=== PATIENT | female | born 1985 | race Caucasian/White ===

== ENCOUNTER 2016-09-20 06:41 | Emergency (ER) | payer SELFPAY ==
[~2016-09-20] VITALS: Ht 167.6 cm; Wt 117.9 kg
[~2016-09-20 06:41] MED LIST: CIPR500T94 PO; INSU100C4 SQ; INSU100I13 SQ; INSU100I17 SQ; LIRA0.6P SQ; LISI2.5T PO; METF500T4 PO; PHEN-318 PO; SERT50TA8 PO; TRAM-48 PO; bupropion
[2016-09-20 07:04] VITALS: BP 134/86
[2016-09-20] MEDS ORDERED: FAMOTIDINE 20 MG TABLET. PO ONE (07:15)
[2016-09-20] MEDS ORDERED: ONDANSETRON ODT 4 MG TAB.RAPDIS. PO ONE (07:15)
--- NOTE | 2016-09-20 07:19 | PHYS DOC ---
Past Medical History Past Medical History: Anxiety, Depression, Diabetes-Type I, Diabetes-Type II, Hypertension, Hypothyroid Additional Past Medical Histor: Diabetic since age 15. Past Surgical History: Alcohol Use: Occasionally Drug Use: Marijuana Adult General Chief Complaint Chief Complaint: NAUSEA/VOMITING/DIARRHA HPI HPI Patient is a 31 year old female with adult onset diabetes presents with intermittent daily nausea vomiting with loose stools for the past 48 hours. Reports occasional cramping with vomiting and diarrhea. Patient last vomited prior to ED arrival. She last had stools 3-4 hours prior to this morning. Patient reports fatigue, but denies fever chills and sweats. Denies dizziness lightheadedness, flank pain and urinary frequency or urgency. Patient finished last menstrual period 3 days ago. No other acute symptoms or complaints. Review of Systems Review of Systems ROS as per HPI. Current Medications Current Medications Current Medications Medications (Trade) Dose Ordered Sig/Justine Start Time Stop Time Status Last Admin Dose Admin Famotidine (Pepcid) 20 mg 1X ONCE 09/20/16 07:15 09/20/16 07:16 Ondansetron HCl (Zofran Odt) 8 mg 1X ONCE 09/20/16 07:15 09/20/16 07:16 Allergies Allergies Allergies Coded Allergies Type Severity Reaction Last Updated Verified No Known Medication Allergies Allergy Unknown 11/23/15 Yes Physical Exam Physical Exam Constitutional: Well developed, well nourished, no acute distress, non-toxic appearance. [] HENT: Normocephalic, atraumatic, bilateral external ears normal, oropharynx moist, no oral exudates, nose normal. [] Eyes: PERRLA, EOMI, conjunctiva normal, no discharge. [] Neck: Normal range of motion, no tenderness, supple, no stridor. [] Cardiovascular:Heart rate regular rhythm, no murmur [] Lungs & Thorax: Bilateral breath sounds clear to auscultation [] Abdomen: Bowel sounds normal, nondistended, bowel sounds soft, mid epigastric pain, minimal tenderness, no rebound rigidity or guarding. [] Skin: Warm, dry, no erythema, no rash. [] Back: No tenderness, no CVA tenderness. [] Neurologic: Alert and oriented X 3, normal motor function, normal sensory function, no focal deficits noted. [] Current Patient Data Vital Signs Vital Signs Date Time Temp Pulse Resp B/P (MAP) Pulse Ox O2 Delivery O2 Flow Rate FiO2 09/20/16 07:04 97.6 88 18 134/86 (102) 100 Room Air 97.6 Lab Values Laboratory Tests Test 09/20/16 06:05 POC Urine HCG, Qualitative Hcg negative (Negative) EKG EKG [] Radiology/Procedures Radiology/Procedures [] Course & Med Decision Making Course & Med Decision Making Pertinent Labs and Imaging studies reviewed. (See chart for details) [Vomiting and diarrhea consistent with GI illness prevalent community. Patient' s abdomen soft minimally tender vital signs are stable. Patient's well- hydrated. Zofran and Pepcid given for symptomatic treatment in the ED. Will continue supportive measures with PCP follow-up as needed. Return precautions reviewed. Courtesy work note provided. Patient verbalizes understanding staining agreement with discharge plan.] Dragon Disclaimer Dragon Disclaimer This electronic medical record was generated, in whole or in part, using a voice recognition dictation system. Departure Departure Impression: Primary Impression: Nausea vomiting and diarrhea Disposition: 01 HOME, SELF-CARE Condition: GOOD Patient Instructions: Nausea and Vomiting, [id number], Diarrhea, [id number] Additional Instructions: Please go home and rest. Take nausea medications as directed. Take over-the- counter Pepcid and Imodium as needed for diarrhea and stomach upset. Drink clear liquids only for the next 12-24 hours. Then gradually increase to bland diet as tolerated. Follow-up with your PCP in 2-3 days if symptoms persist. Return to the ED if new or worsening symptoms. DASIA WARE DO Sep 20, 2016 07:19
== END 2016-09-20 07:25 | disposition home or self-care (01) ==
LOC: ER 06:41
DX: R11.2 Nausea with vomiting, unspecified (principal); R19.7 Diarrhea, unspecified; R10.13 Epigastric pain; F41.9 Anxiety disorder, unspecified; F32.9 Major depressive disorder, single episode, unspecified; E11.9 Type 2 diabetes mellitus without complications; E03.9 Hypothyroidism, unspecified; I10 Essential (primary) hypertension; F12.10 Cannabis abuse, uncomplicated
CPT/HCPCS: 81025; 99283; Q0162

== ENCOUNTER 2016-12-26 11:30 | Emergency (ER) | payer OTHER ==
[~2016-12-26] VITALS: Ht 167.6 cm; Wt 117.9 kg
[2016-12-26] MEDS ORDERED: ONDANSETRON PF 4 MG/2 ML VIAL. IV ONE (12:00)
[2016-12-26] MEDS ORDERED: fentaNYL PF VIAL 100 MCG/2 ML VIAL IV ONE (12:00)
[2016-12-26 12:28] LABS: CALCIUM 10.1 mg/dL (8.5-10.1); CREATININE 0.9 mg/dL (0.6-1.0); GFR 72.6
[2016-12-26 12:33] LABS: ALBUMIN 3.2 g/dL (3.4-5.0); ALBUMIN/GLOBULIN RATIO 0.8 (1.0-1.7); TOTAL BILIRUBIN 0.3 mg/dL (0.2-1.0); TOTAL PROTEIN 7.2 g/dL (6.4-8.2)
[2016-12-26 12:34] LABS: NEG OBC SER NEG; POS OBC SER POS
[2016-12-26] MEDS ORDERED: KETOROLAC 30 MG/ML INJ. IV ONE (12:45)
[2016-12-26 12:49] LABS: BASO % 1 % (0-3); EOS % 5 % (0-3); HEMATOCRIT 38.2 % (36.0-47.0); HEMOGLOBIN 12.5 g/dL (12.0-15.5); LYMPH # 2.4 x10^3/uL (1.0-4.8); LYMPH % 30 % (24-48); MEAN CORPUSCULAR HEMOGLOBIN 27 pg (25-35); MEAN CORPUSCULAR HGB CONC 33 g/dL (31-37); MEAN CORPUSCULAR VOLUME 84 fL (79-100); MONO % 5 % (0-9); NEUT % 60 % (31-73); PLATELET COUNT 299 x10^3/uL (140-400); RED BLOOD COUNT 4.56 x10^6/uL (3.50-5.40)
--- NOTE | 2016-12-26 13:58 | RAD ---
Chest radiograph One View 12/26/2016 Clinical indication: Chest pain Comparison: None Findings: Cardiac and mediastinal silhouettes are within normal limits. No pleural effusion, pneumothorax or focal consolidation. Impression: No acute cardiopulmonary abnormality.
[2016-12-26 14:20] VITALS: BP 108/64
--- NOTE | 2016-12-26 14:38 | PHYS DOC ---
Past Medical History Past Medical History: Anxiety, Depression, Diabetes-Type I, Diabetes-Type II, Hypertension, Hypothyroid Additional Past Medical Histor: Diabetic since age 15. Past Surgical History: Alcohol Use: Occasionally Drug Use: Marijuana Adult General Chief Complaint Chief Complaint: CHEST WALL PAIN HPI HPI Patient is a 31 year old female with history of anxiety presents with nonproductive cough, right parasternal chest wall pain starting 2 hours prior to ED arrival. S1 pain is worse with palpation and deep breathing. Is not associated with nausea fever, vomiting, sweats, wheezing or shortness of breath. Patient denies leg pain swelling. No history of DVT or PE. No other acute symptoms or complaints.. [] Review of Systems Review of Systems Review symptoms as per history of present illness. All other review symptoms are negative. [] All other systems were reviewed and found to be within normal limits, except as documented in this note. Current Medications Current Medications Current Medications Medications (Trade) Dose Ordered Sig/Justine Start Time Stop Time Status Last Admin Dose Admin Fentanyl Citrate (Fentanyl 2ml Vial) 50 mcg 1X ONCE 12/26/16 12:00 12/26/16 12:05 DC Ketorolac Tromethamine (Toradol) 30 mg 1X ONCE 12/26/16 12:45 12/26/16 12:46 DC 12/26/16 13:00 30 MG Ondansetron HCl (Zofran) 4 mg 1X ONCE 12/26/16 12:00 12/26/16 12:05 DC 12/26/16 13:00 4 MG Allergies Allergies Allergies Coded Allergies Type Severity Reaction Last Updated Verified No Known Medication Allergies Allergy Unknown 11/23/15 Yes Physical Exam Physical Exam Constitutional: Well developed, well nourished, anxious.[] HENT: Normocephalic, atraumatic, bilateral external ears normal, oropharynx moist, no oral exudates, nose normal. [] Eyes: PERRLA, EOMI, conjunctiva normal, no discharge. [] Neck: Normal range of motion, no tenderness, supple, no stridor. [] Cardiovascular:Heart rate regular rhythm, no murmur or negative Homans signs. [] Lungs & Thorax: Bilateral breath sounds clear to auscultation, right parasternal chest wall over junction of the sternum and rib cartilage.[] Abdomen: Bowel sounds normal, soft, no tenderness, no masses, no pulsatile masses. [] Extremities: No tenderness, no cyanosis, no clubbing, ROM intact, no edema. [] Neurologic: Alert and oriented X 3, normal motor function, normal sensory function, no focal deficits noted. [] Psychologic: Affect normal, judgement normal, mood normal. [] Current Patient Data Vital Signs Vital Signs Date Time Temp Pulse Resp B/P (MAP) Pulse Ox O2 Delivery O2 Flow Rate FiO2 12/26/16 14:20 97 18 108/64 (79) 99 Room Air 12/26/16 11:32 98.3 98.3 Lab Values Laboratory Tests Test 12/26/16 11:45 12/26/16 12:40 12/26/16 12:55 Sodium Level 141 mmol/L (136-145) Potassium Level 3.0 mmol/L (3.5-5.1) L Chloride Level 100 mmol/L (98-107) Carbon Dioxide Level 27 mmol/L (21-32) Anion Gap 14 (6-14) Blood Urea Nitrogen 18 mg/dL (7-20) Creatinine 0.9 mg/dL (0.6-1.0) Estimated GFR (Cockcroft-Gault) 72.6 BUN/Creatinine Ratio 20 (6-20) Glucose Level 244 mg/dL (70-99) H Calcium Level 10.1 mg/dL (8.5-10.1) Total Bilirubin 0.3 mg/dL (0.2-1.0) Aspartate Amino Transferase (AST) 14 U/L (15-37) L Alanine Aminotransferase (ALT) 21 U/L (14-59) Alkaline Phosphatase 139 U/L (46-116) H Total Protein 7.2 g/dL (6.4-8.2) Albumin 3.2 g/dL (3.4-5.0) L Albumin/Globulin Ratio 0.8 (1.0-1.7) L Serum Test, Qualitative Negative (NEG) White Blood Count 8.0 x10^3/uL (4.0-11.0) Red Blood Count 4.56 x10^6/uL (3.50-5.40) Hemoglobin 12.5 g/dL (12.0-15.5) Hematocrit 38.2 % (36.0-47.0) Mean Corpuscular Volume 84 fL (79-100) Mean Corpuscular Hemoglobin 27 pg (25-35) Mean Corpuscular Hemoglobin Concent 33 g/dL (31-37) Red Cell Distribution Width 13.0 % (11.5-14.5) Platelet Count 299 x10^3/uL (140-400) Neutrophils (%) (Auto) 60 % (31-73) Lymphocytes (%) (Auto) 30 % (24-48) Monocytes (%) (Auto) 5 % (0-9) Eosinophils (%) (Auto) 5 % (0-3) H Basophils (%) (Auto) 1 % (0-3) Neutrophils # (Auto) 4.8 x10^3uL (1.8-7.7) Lymphocytes # (Auto) 2.4 x10^3/uL (1.0-4.8) Monocytes # (Auto) 0.4 x10^3/uL (0.0-1.1) Eosinophils # (Auto) 0.4 x10^3/uL (0.0-0.7) Basophils # (Auto) 0.0 x10^3/uL (0.0-0.2) D-Dimer (Jossy) 0.32 ug/mlFEU (0.00-0.50) POC Urine HCG, Qualitative Hcg negative (Negative) Laboratory Tests 12/26/16 12:40 Laboratory Tests 12/26/16 11:45 EKG EKG [] Radiology/Procedures Radiology/Procedures [Chest x-ray: No acute cardiopulmonary disease.] Course & Med Decision Making Course & Med Decision Making Pertinent Labs and Imaging studies reviewed. (See chart for details) [Symptoms consistent with costochondritis. D-dimer negative. Symptoms significantly improved with treatment. Recommend continue supportive care, PCP follow-up. Return precautions reviewed. Patient verbalizes understanding agreement discharge instructions prior to departure.] Dragon Disclaimer Dragon Disclaimer This electronic medical record was generated, in whole or in part, using a voice recognition dictation system. Departure Departure Impression: Primary Impression: Chest wall pain Additional Impression: Costochondritis, acute Disposition: 01 HOME, SELF-CARE Condition: GOOD Patient Instructions: Costochondritis, [id number] Additional Instructions: Please take 600 mg of ibuprofen 3 times daily and tramadol as needed for additional relief. Follow-up with your PCP in 2-3 days for reevaluation if symptoms persist. Return to the ED if new or worsening symptoms. Problem Qualifiers DASIA WARE DO Dec 26, 2016 14:38
== END 2016-12-26 14:23 | disposition home or self-care (01) ==
LOC: ER 11:30
DX: M94.0 Chondrocostal junction syndrome [Tietze] (principal); E03.9 Hypothyroidism, unspecified; E11.9 Type 2 diabetes mellitus without complications; F32.9 Major depressive disorder, single episode, unspecified; F41.9 Anxiety disorder, unspecified; I10 Essential (primary) hypertension; F12.10 Cannabis abuse, uncomplicated
CPT/HCPCS: 36415; 71010; 80053; 81025; 84703; 85025; 85379; 96374; 96375; 99285; J1885; J2405

== ENCOUNTER 2016-12-26 19:36 | Emergency (ER) | payer OTHER ==
[~2016-12-26] VITALS: Ht 167.6 cm; Wt 117.9 kg
[2016-12-26] MEDS ORDERED: ONDANSETRON PF 4 MG/2 ML VIAL. IV ONE (20:45)
[2016-12-26] MEDS ORDERED: IV NORMAL SALINE 1000ML BAG 1,000 ML IV ONE (20:45)
[2016-12-26] MEDS ORDERED: ASPIRIN CHEWABLE 81 MG TABLET. PO ONE (20:45)
--- NOTE | 2016-12-26 20:50 | PHYS DOC ---
Past Medical History Past Medical History: Anxiety, Depression, Diabetes-Type I, Diabetes-Type II, Hypertension, Hypothyroid Additional Past Medical Histor: Diabetic since age 15. Past Surgical History: Alcohol Use: Rarely Drug Use: Marijuana Adult General Chief Complaint Chief Complaint: CHEST WALL PAIN HPI HPI Patient is a 31 year old F who presents with chest pain. Patient was seen this morning for her chest pain and had a workup including a negative d-dimer and negative troponin and the patient was discharged home with a prescription for tramadol and she did not fill it. Patient returned because she started having increasing centralized chest pain with nausea and vomiting. Patient is a diabetic. Patient has no previous cardiac history. Patient is obese but does not smoke. Review of Systems Review of Systems GEN: Denies fevers, chills, sweats HEENT: Denies blurred vision, sore throat CV: Chest pain RESP: Denies shortness of air, cough GI: Nausea and vomiting NEURO: Denies confusion, dizziness MSK: Denies weakness, joint pain/swelling All other systems were reviewed and found to be within normal limits, except as documented in this note. Current Medications Current Medications Current Medications Medications (Trade) Dose Ordered Sig/Justine Start Time Stop Time Status Last Admin Dose Admin Aspirin (Children'S Aspirin) 324 mg 1X ONCE 12/26/16 20:45 12/26/16 20:52 DC 12/26/16 21:25 324 MG Info (Do NOT chart on this entry -- for MONITORING) 1 each PRN DAILY PRN 12/26/16 21:15 12/28/16 21:14 Iohexol (Omnipaque 300 Mg/ml) 100 ml STK-MED ONCE 12/26/16 21:06 12/26/16 21:07 DC Ketorolac Tromethamine (Toradol) 30 mg 1X ONCE 12/26/16 21:45 12/26/16 21:46 DC 12/26/16 21:45 30 MG Ondansetron HCl (Zofran) 4 mg 1X ONCE 12/26/16 20:45 12/26/16 20:52 DC 12/26/16 20:24 4 MG Sodium Chloride 1,000 ml @ 1,000 mls/hr 1X ONCE 12/26/16 20:45 12/26/16 21:44 DC Allergies Allergies Allergies Coded Allergies Type Severity Reaction Last Updated Verified No Known Medication Allergies Allergy Unknown 11/23/15 Yes Physical Exam Physical Exam GEN.: Mild distress. Alert and oriented. HEENT: Head is normocephalic, atraumatic NECK: Supple. LUNGS: CTAB. HEART: RRR, S1, S2 present. Peripheral pulses intact ABDOMEN: Soft, nontender. Positive bowel sounds. EXTREMITIES: Without any cyanosis. NEUROLOGIC: Normal speech, normal tone PSYCHIATRIC: Normal affect, normal mood. SKIN: No ulcerations Current Patient Data Vital Signs Vital Signs Date Time Temp Pulse Resp B/P (MAP) Pulse Ox O2 Delivery O2 Flow Rate FiO2 12/26/16 19:51 98.4 97 20 138/92 (107) 99 Room Air 98.4 Lab Values Laboratory Tests Test 12/26/16 21:05 White Blood Count 7.3 x10^3/uL (4.0-11.0) Red Blood Count 4.53 x10^6/uL (3.50-5.40) Hemoglobin 12.5 g/dL (12.0-15.5) Hematocrit 38.3 % (36.0-47.0) Mean Corpuscular Volume 85 fL (79-100) Mean Corpuscular Hemoglobin 28 pg (25-35) Mean Corpuscular Hemoglobin Concent 33 g/dL (31-37) Red Cell Distribution Width 13.0 % (11.5-14.5) Platelet Count 265 x10^3/uL (140-400) Neutrophils (%) (Auto) 50 % (31-73) Lymphocytes (%) (Auto) 37 % (24-48) Monocytes (%) (Auto) 6 % (0-9) Eosinophils (%) (Auto) 6 % (0-3) H Basophils (%) (Auto) 1 % (0-3) Neutrophils # (Auto) 3.6 x10^3uL (1.8-7.7) Lymphocytes # (Auto) 2.7 x10^3/uL (1.0-4.8) Monocytes # (Auto) 0.5 x10^3/uL (0.0-1.1) Eosinophils # (Auto) 0.4 x10^3/uL (0.0-0.7) Basophils # (Auto) 0.1 x10^3/uL (0.0-0.2) Sodium Level 140 mmol/L (136-145) Potassium Level 3.4 mmol/L (3.5-5.1) L Chloride Level 102 mmol/L (98-107) Carbon Dioxide Level 25 mmol/L (21-32) Anion Gap 13 (6-14) Blood Urea Nitrogen 20 mg/dL (7-20) Creatinine 1.0 mg/dL (0.6-1.0) Estimated GFR (Cockcroft-Gault) 64.3 BUN/Creatinine Ratio 20 (6-20) Glucose Level 232 mg/dL (70-99) H Calcium Level 9.6 mg/dL (8.5-10.1) Total Bilirubin 0.1 mg/dL (0.2-1.0) L Aspartate Amino Transferase (AST) 17 U/L (15-37) Alanine Aminotransferase (ALT) 18 U/L (14-59) Alkaline Phosphatase 126 U/L (46-116) H Troponin I Quantitative < 0.017 ng/mL (0.000-0.055) Total Protein 6.6 g/dL (6.4-8.2) Albumin 2.9 g/dL (3.4-5.0) L Albumin/Globulin Ratio 0.8 (1.0-1.7) L Laboratory Tests 12/26/16 21:05 Laboratory Tests 12/26/16 21:05 EKG EKG 2040: EKG shows normal sinus rhythm rate of 91 no STEMI[] Radiology/Procedures Radiology/Procedures CTA chest: IMPRESSION: 1. No evidence of central, lobar or segmental pulmonary embolus. 2. Mild diffuse bronchial wall thickening, nonspecific. Consider acute or chronic bronchitis. [] Course & Med Decision Making Course & Med Decision Making Pertinent Labs and Imaging studies reviewed. (See chart for details) ED course: Patient was seen and examined emergency room repeat blood work was ordered and since the patient was seen this morning for some her symptoms we'll add on the CTA of the chest 2215: Patient was reevaluated in which the chest pain has resolved and she is asymptomatic. Patient is comfortable going home. Recommended outpatient cardiac workup based off her cardiac risk factors. MDM: After reviewing the chart, CC/HPI/PMH, physical exam, [lab results], [ radiological results], I do not believe the patient is having acute MA (Heart score=2), PE, or thoracic aortic dissection. On reexamination the patient's symptoms have resolved and she is stable for discharge. Additional verbal discharge instructions were provided to the patient and that if symptoms get worse or any new symptoms arise that are worrisome to the patient she is to return to the emergency room immediately [] Dragon Disclaimer Dragon Disclaimer This electronic medical record was generated, in whole or in part, using a voice recognition dictation system. Departure Departure Impression: Primary Impression: Chest wall pain Disposition: HOME, SELF-CARE Condition: IMPROVED Referrals: UNKNOWN PCP NAME (PCP) Patient Instructions: Chest Pain (Nonspecific) Additional Instructions: Please follow-up with your family physician in the next one to 2 days and return if symptoms increase RODRIGUEZ VILLALOBOS DO Dec 26, 2016 20:50
[2016-12-26] MEDS ORDERED: IOHEXOL 300 MG/ML 100ML VIAL. ONE (21:06)
[2016-12-26 21:12] LABS: BASO # 0.1 x10^3/uL (0.0-0.2); BASO % 1 % (0-3); EOS % 6 % (0-3); HEMATOCRIT 38.3 % (36.0-47.0); HEMOGLOBIN 12.5 g/dL (12.0-15.5); LYMPH # 2.7 x10^3/uL (1.0-4.8); LYMPH % 37 % (24-48); MEAN CORPUSCULAR HEMOGLOBIN 28 pg (25-35); MEAN CORPUSCULAR HGB CONC 33 g/dL (31-37); MEAN CORPUSCULAR VOLUME 85 fL (79-100); MONO % 6 % (0-9); NEUT % 50 % (31-73); PLATELET COUNT 265 x10^3/uL (140-400); RED BLOOD COUNT 4.53 x10^6/uL (3.50-5.40); WHITE BLOOD COUNT 7.3 x10^3/uL (4.0-11.0)
[2016-12-26] MEDS ORDERED: IOHEXOL 300 MG/ML 100ML VIAL. IV ONE (21:15)
[2016-12-26] MEDS ORDERED: CONTRAST GIVEN MC PRN (21:15)
[2016-12-26 21:29] LABS: CALCIUM 9.6 mg/dL (8.5-10.1); GFR 64.3; POTASSIUM 3.4 mmol/L (3.5-5.1)
[2016-12-26 21:30] VITALS: BP 133/85
[2016-12-26 21:35] LABS: ALBUMIN 2.9 g/dL (3.4-5.0); ALBUMIN/GLOBULIN RATIO 0.8 (1.0-1.7); TOTAL BILIRUBIN 0.1 mg/dL (0.2-1.0); TOTAL PROTEIN 6.6 g/dL (6.4-8.2)
[2016-12-26] MEDS ORDERED: KETOROLAC 30 MG/ML INJ. IV ONE (21:45)
--- NOTE | 2016-12-26 21:50 | RAD ---
CT ANGIOGRAPHY CHEST dated 12/26/2016 9:32 PM Indication: Severe chest pain pain since this morningsevere cp since this a.m., [id number] 7ml, no priors. Comparison: No comparison is available. Technique: Contiguous axial imaging of the chest performed following the intravenous demonstration of 70 cc Omnipaque 300. Study performed as dedicated PE protocol with thin cut coronal MIPS 3-D reconstruction. One or more of the following individualized dose reduction techniques were utilized for this examination: 1. Automated exposure control 2. Adjustment of the mA and/or kV according to patient size 3. Use of iterative reconstruction technique Findings: Contrast bolus is adequate. No evidence of central, lobar or segmental pulmonary embolus. Heart size within normal limits. No pericardial effusion. No mediastinal, hilar or axillary lymphadenopathy. Thyroid gland unremarkable. Central airways are patent. Mild diffuse bronchial wall thickening. No consolidation or pleural effusion. No pneumothorax. Limited images of upper abdomen are unremarkable. No significant bony abnormality. IMPRESSION: 1. No evidence of central, lobar or segmental pulmonary embolus. 2. Mild diffuse bronchial wall thickening, nonspecific. Consider acute or chronic bronchitis. Electronically signed by: Joss Hernandez MD (12/26/2016 9:47 PM) [id number]
--- NOTE | 2016-12-27 06:18 | EKG ---
[facility] [address] [place] [address] Test Date: 2016-12-26 Test Time: 11:37:38 Pat Name: JUAN M OBRIEN Department: Room: Gender: F Telephone Service Adviser: : 1985 Requested By: RODRIGUEZ VILLALOBOS Order Number: [id number] Reading MD: Mario Ospina MD Measurements Intervals [place] Rate: 89 P: 38 [place]: 142 QRS: 26 QRSD: 94 T: 29 QT: 372 QTc: 454 Interpretive Statements SINUS RHYTHM NON-SPECIFIC ST/T CHANGES Electronically Signed On 12-27-2016 16:10:01 TRAUMA REGISTRAR by Mario Ospina MD
--- NOTE | 2016-12-27 07:54 | EKG ---
[facility] [address] [place] [address] Test Date: 2016-12-26 Test Time: 20:39:10 Pat Name: JUAN M OBRIEN Department: Room: Gender: F Service Superintendent: : 1985 Requested By: RODRIGUEZ VILLALOBOS Order Number: [id number] Reading MD: Mario Ospina MD Measurements Intervals [place] Rate: 91 P: 38 OR: 140 QRS: 21 QRSD: 94 T: 25 QT: 366 QTc: 452 Interpretive Statements SINUS RHYTHM Electronically Signed On 12-27-2016 16:12:19 [employer] by Mario Ospina MD
== END 2016-12-26 22:37 | disposition home or self-care (01) ==
LOC: ER 19:36
DX: R07.89 Other chest pain (principal); R11.2 Nausea with vomiting, unspecified; E03.9 Hypothyroidism, unspecified; F32.9 Major depressive disorder, single episode, unspecified; I10 Essential (primary) hypertension; F41.9 Anxiety disorder, unspecified; E66.9 Obesity, unspecified; E11.9 Type 2 diabetes mellitus without complications; F12.10 Cannabis abuse, uncomplicated; Z68.41 Body mass index [BMI] 40.0-44.9, adult
CPT/HCPCS: 36415; 71275; 80053; 84484; 85025; 93005; 96361; 96374; 96375; 99285; J1885; J2405; J7030; Q9967

== ENCOUNTER 2018-02-20 08:37 | Emergency (ER) | payer SELFPAY ==
[~2018-02-20] VITALS: Ht 167.6 cm; Wt 111.6 kg
[~2018-02-20 08:37] MED LIST changes: +METF500T16 PO; -METF500T4 PO
--- NOTE | 2018-02-20 09:12 | PHYS DOC ---
Past Medical History Past Medical History: Anxiety, Depression, Diabetes-Type I, Diabetes-Type II, Hypertension, Hypothyroid Additional Past Medical Histor: Diabetic since age 15. Past Surgical History: Alcohol Use: Rarely Drug Use: Marijuana Adult General Chief Complaint Chief Complaint: NAUSEA/VOMITING/DIARRHA HPI HPI Patient is a 32 year old female presented to ER today for evaluation of nausea , vomiting, diarrhea since about 5 days ago. She denies any recent antibiotic usage. Patient denies any fever or chill. She complains some abdominal cramping after so many episodes of vomiting. She has history of diabetic, is on insulin and medication for it. Review of Systems Review of Systems Constitutional: Denies fever or chills [] Eyes: Denies change in visual acuity, redness, or eye pain [] HENT: Denies nasal congestion or sore throat [] Respiratory: Denies cough or shortness of breath [] Cardiovascular: No additional information not addressed in HPI [] GI: Positive for abdominal pain, nausea, vomiting, and diarrhea [] : Denies dysuria or hematuria [] Musculoskeletal: Denies back pain or joint pain [] Integument: Denies rash or skin lesions [] Neurologic: Denies headache, focal weakness or sensory changes [] Endocrine: Denies polyuria or polydipsia [] All other systems were reviewed and found to be within normal limits, except as documented in this note. Current Medications Current Medications Current Medications Medications (Trade) Dose Ordered Sig/Justine Start Time Stop Time Status Last Admin Dose Admin Ondansetron HCl (Zofran) 8 mg 1X ONCE 02/20/18 09:30 02/20/18 09:31 DC 02/20/18 09:32 8 MG Sodium Chloride 1,000 ml @ 1,000 mls/hr 1X ONCE 02/20/18 11:45 02/20/18 12:44 Allergies Allergies Allergies Coded Allergies Type Severity Reaction Last Updated Verified No Known Drug Allergies 02/20/18 No Physical Exam Physical Exam Constitutional: Well developed, well nourished, no acute distress, non-toxic appearance. [] HENT: Normocephalic, atraumatic, bilateral external ears normal, oropharynx moist, no oral exudates, nose normal. [] Eyes: PERRLA, EOMI, conjunctiva normal, no discharge. [] Neck: Normal range of motion, no tenderness, supple, no stridor. [] Cardiovascular:Heart rate regular rhythm, no murmur [] Lungs & Thorax: Bilateral breath sounds clear to auscultation [] Abdomen: Bowel sounds normal, soft, no tenderness, no masses, no pulsatile masses. [] Skin: Warm, dry, no erythema, no rash. [] Back: No tenderness, no CVA tenderness. [] Extremities: No tenderness, no cyanosis, no clubbing, ROM intact, no edema. [] Neurologic: Alert and oriented X 3, normal motor function, normal sensory function, no focal deficits noted. [] Psychologic: Affect normal, judgement normal, mood normal. [] Current Patient Data Vital Signs Vital Signs Date Time Temp Pulse Resp B/P (MAP) Pulse Ox O2 Delivery O2 Flow Rate FiO2 02/20/18 11:16 78 18 127/77 (94) 96 02/20/18 08:40 97.6 Room Air 97.6 Lab Values Laboratory Tests Test 02/20/18 08:42 02/20/18 08:58 02/20/18 09:20 Urine Collection Type Unknown Urine Color Yellow Urine Clarity Clear Urine pH 5.5 Urine Specific [place] >=1.030 Urine Protein Negative mg/dL (NEG-TRACE) Urine Glucose (UA) >=1000 mg/dL (NEG) Urine Ketones (Stick) 15 mg/dL (NEG) Urine Blood Negative (NEG) Urine Nitrite Negative (NEG) Urine Bilirubin Negative (NEG) Urine Urobilinogen Dipstick 0.2 mg/dL (0.2 mg/dL) Urine Leukocyte Esterase Negative (NEG) Urine RBC 0 /HPF (0-2) Urine WBC Occ /HPF (0-4) Urine Squamous Epithelial Cells Few /LPF Urine Bacteria Few /HPF (0-FEW) POC Urine HCG, Qualitative Hcg negative (Negative) White Blood Count 9.7 x10^3/uL (4.0-11.0) Red Blood Count 5.19 x10^6/uL (3.50-5.40) Hemoglobin 14.5 g/dL (12.0-15.5) Hematocrit 43.4 % (36.0-47.0) Mean Corpuscular Volume 84 fL (79-100) Mean Corpuscular Hemoglobin 28 pg (25-35) Mean Corpuscular Hemoglobin Concent 33 g/dL (31-37) Red Cell Distribution Width 12.9 % (11.5-14.5) Platelet Count 387 x10^3/uL (140-400) Neutrophils (%) (Auto) 59 % (31-73) Lymphocytes (%) (Auto) 26 % (24-48) Monocytes (%) (Auto) 6 % (0-9) Eosinophils (%) (Auto) 8 % (0-3) H Basophils (%) (Auto) 1 % (0-3) Neutrophils # (Auto) 5.8 x10^3uL (1.8-7.7) Lymphocytes # (Auto) 2.6 x10^3/uL (1.0-4.8) Monocytes # (Auto) 0.5 x10^3/uL (0.0-1.1) Eosinophils # (Auto) 0.8 x10^3/uL (0.0-0.7) H Basophils # (Auto) 0.1 x10^3/uL (0.0-0.2) Sodium Level 134 mmol/L (136-145) L Potassium Level 4.0 mmol/L (3.5-5.1) Chloride Level 97 mmol/L (98-107) L Carbon Dioxide Level 27 mmol/L (21-32) Anion Gap 10 (6-14) Blood Urea Nitrogen 13 mg/dL (7-20) Creatinine 0.7 mg/dL (0.6-1.0) Estimated GFR (Cockcroft-Gault) 96.4 BUN/Creatinine Ratio 19 (6-20) Glucose Level 372 mg/dL (70-99) H Calcium Level 9.6 mg/dL (8.5-10.1) Total Bilirubin 0.6 mg/dL (0.2-1.0) Aspartate Amino Transferase (AST) 11 U/L (15-37) L Alanine Aminotransferase (ALT) 20 U/L (14-59) Alkaline Phosphatase 117 U/L (46-116) H Total Protein 8.0 g/dL (6.4-8.2) Albumin 3.5 g/dL (3.4-5.0) Albumin/Globulin Ratio 0.8 (1.0-1.7) L Lipase 166 U/L (73-393) Acetone Level Sm pos (NEG) Laboratory Tests 02/20/18 09:20 Laboratory Tests 02/20/18 09:20 EKG EKG [] Radiology/Procedures Radiology/Procedures [] Course & Med Decision Making Course & Med Decision Making Pertinent Labs and Imaging studies reviewed. (See chart for details) Patient was given IV fluid and zofran. She felt much better, would like to go home. Dragon Disclaimer Dragon Disclaimer This electronic medical record was generated, in whole or in part, using a voice recognition dictation system. Departure Departure Impression: Primary Impression: Acute gastroenteritis Disposition: 01 HOME, SELF-CARE Condition: IMPROVED Referrals: UNKNOWN PCP NAME (PCP) FOLLOW UP WITH YOUR FAMILY NEEDED Patient Instructions: Viral Gastroenteritis Scripts Ondansetron Hcl (ZOFRAN) 4 Mg Tablet 1 TAB PO Q6HRS PRN for NAUSEA, #20 TAB Prov: KELLY PAYNE DO 02/20/18 KELLY PAYNE DO Feb 20, 2018 09:12
[2018-02-20 09:21] LABS: BILIRUBIN,URINE NEGATIVE (NEG); CLARITY,URINE CLEAR; COLOR,URINE YELLOW; NITRITE,URINE NEGATIVE (NEG); PH,URINE 5.5; PROTEIN,URINE NEGATIVE (NEG-TRACE); UROBILINOGEN,URINE 0.2 mg/dL (0.2 mg/dL)
[2018-02-20] MEDS ORDERED: IV NORMAL SALINE 1000ML BAG 1,000 ML IV SCH (09:30)
[2018-02-20] MEDS ORDERED: ONDANSETRON PF 4 MG/2 ML VIAL. IV ONE (09:30)
[2018-02-20 09:33] LABS: BACTERIA,URINE FEW /HPF (0-FEW); SQUAMOUS EPITHELIAL CELL,UR FEW /LPF; WBC,URINE OCC /HPF (0-4)
[2018-02-20 09:34] LABS: RBC,URINE 0 /HPF (0-2)
[2018-02-20 09:40] LABS: BASO # 0.1 x10^3/uL (0.0-0.2); BASO % 1 % (0-3); EOS # 0.8 x10^3/uL (0.0-0.7); EOS % 8 % (0-3); HEMATOCRIT 43.4 % (36.0-47.0); HEMOGLOBIN 14.5 g/dL (12.0-15.5); LYMPH # 2.6 x10^3/uL (1.0-4.8); LYMPH % 26 % (24-48); MEAN CORPUSCULAR HEMOGLOBIN 28 pg (25-35); MEAN CORPUSCULAR HGB CONC 33 g/dL (31-37); MEAN CORPUSCULAR VOLUME 84 fL (79-100); MONO # 0.5 x10^3/uL (0.0-1.1); MONO % 6 % (0-9); NEUT # 5.8 x10^3uL (1.8-7.7); NEUT % 59 % (31-73); PLATELET COUNT 387 x10^3/uL (140-400); RED BLOOD COUNT 5.19 x10^6/uL (3.50-5.40); RED CELL DISTRIBUTION WIDTH 12.9 % (11.5-14.5); WHITE BLOOD COUNT 9.7 x10^3/uL (4.0-11.0)
[2018-02-20 10:13] LABS: CALCIUM 9.6 mg/dL (8.5-10.1); CREATININE 0.7 mg/dL (0.6-1.0); GFR 96.4
[2018-02-20 10:20] LABS: ALBUMIN 3.5 g/dL (3.4-5.0); ALBUMIN/GLOBULIN RATIO 0.8 (1.0-1.7); TOTAL BILIRUBIN 0.6 mg/dL (0.2-1.0)
[2018-02-20] MEDS ORDERED: IV NORMAL SALINE 1000ML BAG 1,000 ML IV ONE (11:45)
[2018-02-20 11:53] VITALS: BP 116/79
[2018-02-20] MEDS ORDERED: ONDA4TAB7 PO (11:58)
== END 2018-02-20 12:12 | disposition home or self-care (01) ==
LOC: ER 08:37
DX: K52.89 Other specified noninfective gastroenteritis and colitis (principal); F41.9 Anxiety disorder, unspecified; F32.9 Major depressive disorder, single episode, unspecified; I10 Essential (primary) hypertension; E03.9 Hypothyroidism, unspecified; E11.9 Type 2 diabetes mellitus without complications; Z79.4 Long term (current) use of insulin; Z98.890 Other specified postprocedural states
CPT/HCPCS: 36415; 80053; 81001; 81025; 82010; 83690; 85025; 96361; 96374; 99283; J2405; J7030

== ENCOUNTER 2018-09-11 15:33 | Emergency (ER) | payer SELFPAY ==
[~2018-09-11] VITALS: Ht 170.2 cm; Wt 104.3 kg
[~2018-09-11 15:33] MED LIST changes: +ONDA4TAB7 PO
[2018-09-11 16:59] VITALS: BP 144/90
[2018-09-11] MEDS ORDERED: cefTRIAXone IM 250 MG VIAL IM ONE (17:30)
[2018-09-11] MEDS ORDERED: AZITHROMYCIN 250 MG TABLET. PO ONE (17:30)
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
[2018-09-11 17:48] LABS: BILIRUBIN,URINE NEGATIVE (NEG); CLARITY,URINE CLEAR; COLOR,URINE YELLOW; NITRITE,URINE NEGATIVE (NEG); PROTEIN,URINE NEGATIVE (NEG-TRACE); UROBILINOGEN,URINE 0.2 mg/dL (0.2 mg/dL)
[2018-09-11] MEDS ORDERED: METR500T PO (17:57)
[2018-09-11 17:58] LABS: BACTERIA,URINE MANY /HPF (0-FEW); RBC,URINE OCC /HPF (0-2); SQUAMOUS EPITHELIAL CELL,UR MANY /LPF; WBC,URINE 20-40 /HPF (0-4)
[2018-09-11 17:59] LABS: TRICHOMONAS,URINE PRESENT; YEAST,URINE PRESENT /HPF
[2018-09-11] MEDS ORDERED: CEPH-264 PO (18:17)
[2018-09-15 23:07] LABS: GC PROBE Negative (Negative)
== END 2018-09-11 18:28 | disposition home or self-care (01) ==
LOC: ER 15:33
DX: N39.0 Urinary tract infection, site not specified (principal); A59.01 Trichomonal vulvovaginitis; N76.0 Acute vaginitis; B96.89 Other specified bacterial agents as the cause of diseases classified elsewhere; Z20.2 Contact with and (suspected) exposure to infections with a predominantly sexual mode of transmission; E11.9 Type 2 diabetes mellitus without complications; I10 Essential (primary) hypertension; E03.9 Hypothyroidism, unspecified
CPT/HCPCS: 81001; 81025; 87086; 87186; 87491; 87591; 96372; 99284; J0696; Q0111; Q0144